=== PATIENT | male | born 1955 | race Caucasian/White ===

== ENCOUNTER 2017-01-29 08:00 | Inpatient (IN) | payer OTHER ==
[~2017-01-29] VITALS: Ht 180.3 cm; Wt 126.8 kg
--- NOTE | ~2017-01-29 | DS ---
PATIENT'S NAME: ALFONSO HYDE [facility] AGE: 61 Y [address] ROOM: [place] [address] LOCATION: GPCU ADMIT DATE: 02/01/2017 Discharge Summary DISCHARGE DATE: 02/02/2017 FAMILY PHYSICIAN: Physician, Unknown ATTENDING PHYSICIAN: Oseas Saenz PRINCIPAL DISCHARGE DIAGNOSIS: Non-ST elevation myocardial infarction secondary to nondominant right coronary artery occlusion treated with percutaneous transluminal coronary angioplasty. SECONDARY DIAGNOSES: 1. Hypertension with hypertensive urgency on admission. 2. Tobaccoism. 3. Atrial flutter status post failed cardioversion on 02/01/2017 with repeat cardioversion on 02/02/2017 with maintained normal sinus rhythm at the time of my dictation. 4. He has a CHADS2-Vasc score of 1. 5. Alcoholism. 6. Moderate obesity. 7. Moderate left ventricular hypertrophy. 8. Mild biatrial dilatation. CONSULTATION: Cardiology on 01/29/[address] Sykla Hudson. BRIEF HISTORY: Mr. Hyde is a 61-year-old male who woke up on the morning of admission with central chest pain, upper part of the chest radiating to his back and shoulders associated with shortness of breath. It was severe and he went to the emergency room. He reports that he has been having the pain for 7 to 10 days, but had ignored it. The pain was lasting between 4 to 5 hours. By the time, he arrived at the emergency room, he was completely pain free. His troponins were elevated. His EKG was negative for ST elevation. He did have history of prior [place] in the past, but has had no significant workup for it. The patient was admitted to the hospitalist service and discharged on heparin and nitroglycerin drips. He was tachycardic and was started on metoprolol. The patient did go to cardiac catheterization on 01/29/2017 and he was then started on Plavix 75 mg a day, aspirin, atorvastatin 80 mg a day. The patient was given adenosine for SVT, rates in the 230s on the 01/30/2017 and started on Cardizem drip at that time. He was found to be in a flutter with RVR. On 01/31/2017, he went for CALLIE cardioversion and was briefly in sinus rhythm with PACs and PVCs. He was given digoxin on 01/31/2017. Metoprolol started and amiodarone p.o. b.i.d. on the 01/31/2017. Yesterday on 02/01/2017, he was again given amiodarone bolus for tachycardia and doses of metoprolol were PATIENT'S NAME: ALFONSO HYDE [facility] AGE: 61 Y [address] ROOM: [address] [address] LOCATION: GPCU ADMIT DATE: 02/01/2017 Discharge Summary DISCHARGE DATE: 02/02/2017 FAMILY PHYSICIAN: Physician, Unknown ATTENDING PHYSICIAN: Oseas Saenz increased. He was resumed on heparin protocol and this morning his heparin protocol was discontinued. His heart rate was down. It was thought that he would be able to go home, however, his heart rate went back up and as above he had to be cardioverted again today by Dr. Hudson. He is now stable with heart rates in the 80s. Dr. Hudson agrees with discharge plan to home today and would follow up him in the near future. INSTRUCTIONS AT DISCHARGE: 1. Diet: Low fat. 2. Activity: As tolerated. 3. Followup: He is encouraged to establish care with PCP within the next week. 4. He is to see Dr. Hudson within 7 days and prior to that, should have a digoxin level with a basic metabolic panel. MEDICATIONS AT THE TIME OF DISCHARGE: 1. Amiodarone 200 mg p.o. t.i.d. 2. Aspirin 325 mg p.o. daily. 3. Lipitor 80 mg p.o. at bedtime daily. 4. Plavix 75 mg p.o. daily. 5. Pepcid 40 mg p.o. daily. 6. Lisinopril 20 mg p.o. daily. 7. Metoprolol 50 mg p.o. b.i.d. 8. NicoDerm patch 21 transdermal apply daily. 9. Spironolactone 25 mg p.o. daily. 10. He can resume his Maalox which he was taking at home prior to admission. 11. Digoxin 0.0625 mg p.o. one daily. CONDITION AT DISCHARGE: Good. The patient agreed with the plan for discharge. Greater than 30 minutes spent in the discharge process and evaluating the patient earlier prior to his cardioversion today. LAMONT QURESHI MD LM/mukul /[id number] d: 02/03/179 t: 02/05/17 1849, DISCHARGE SUMMARY
--- NOTE | ~2017-01-29 | OR ---
PATIENT'S NAME: ALFONSO PENA [facility] AGE: 61 Y [address] ROOM: [address] [address] [facility] ADMIT DATE: 02/01/2017 OR/Procedure Report DISCHARGE DATE: FAMILY PHYSICIAN: PHYSICIAN, UNKNOWN ATTENDING PHYSICIAN: MANI ENAMORADO SURGEON: Shana Anderson MD MUNICIPAL ENGINEER: DATE OF PROCEDURE: 01/31/2017 CARDIOVERSION NOTE: INDICATION: Atrial flutter with rapid ventricular rate. PROCEDURE: The procedure was described to the patient and informed consent was obtained. The patient has been having atrial flutter with rapid ventricular rate despite being on metoprolol, digoxin, Cardizem, and amiodarone. Discussed with the patient risks and benefits, and the patient agreed to proceed with CALLIE cardioversion. CALLIE was performed, which did not show any obvious left atrial appendage thrombus. The CALLIE report is reported separately. Anesthesia was provided by telemarketing agent. The patient was given DC shock 100 joules in anterior-posterior defibrillator pad position and he converted to sinus rhythm. However, in few minutes, he converted back to atrial flutter. Under anesthesia, he was given another shock of 100 joules following which he converted back into sinus rhythm; however, the patient again converted back to atrial flutter, and the patient was given the third DC shock of 100 joules. The patient converted back to sinus rhythm; however, in few minutes, again he converted back to atrial flutter. We will continue amiodarone for 24 hours and reconsider cardioversion tomorrow since the patient is not able to maintain sinus rhythm with cardioversion. SHANA ANDERSON MD LY/modl /[id number] d: 01/31/17905 t: 02/11/17 1217, OPERATIVE SUMMARY
--- NOTE | ~2017-01-29 | CATH ---
Cardiac Diagnostic + PCI Report Demographics Patient Name BECKY Aparicio Gender Male Date of 1955 Age 61 year(s) Patient Number [id number] Date of Study 01/29/2017 Visit Number [id number] Room Number G6301 [place] [id number] Ht 180.34 cm Wt 129.01 kg Referring Becca Primary Physician Physician Skyla BARKLEY Performing Becca Secondary Physician Physician Skyla BARKLEY Diagnostic Becca Assisting Physician Physician Skyla BARKLEY Interventional Becca Physician Insurance Counsel Physician Skyla BARKLEY Findings and Conclusions Diagnostic Findings and Conclusion LVEDP 20 No gradient Calcification involving proximal coronaries. Diagnostic Recommendations PCI of RCA Interventional Findings and Conclusion Initially thought RCA was bigger than it is. Intervention performed. After PTCA, it was clear that RCA is non-dominant. Ballooned the RCA, but did not stent. Vessel is about 2 mm in diameter. Interventional Recommendations Dual antiplatelet therapy for 3 months. Aggressive secondary prevention measures. Procedure Description The patient was brought to the diagnostic cardiac catheterization-EP laboratory in the fasting, non-sedated state. Informed consent was obtained in the written and verbal form after the risks and benefits were explained. The patient had no further questions and agreed to proceed. The planned puncture-incision site(s) were shaved and prepped with ChloraPrep and draped in the usual sterile manner. Conscious sedation, supplemental oxygen, and pain control medications were delivered by a registered nurse under physician guidance. Surface ECG rhythm, blood pressure measurement, and pulse oximetry were monitored throughout the procedure. Arterial access. The access site was infiltrated with lidocaine. The vessel was entered with the Seldinger technique. A sheath was advanced into the vessel and used for catheter placement. Selective left coronary angiography. A catheter was advanced into the left coronary vessel ostium under Fluoroscopic guidance. Contrast was injected by hand. Images were obtained in multiple projections. Selective right coronary angiography. A catheter was advanced into the right coronary vessel ostium under fluoroscopic guidance. Contrast was injected by hand. Images were obtained in multiple projections. Left heart catheterization. A catheter was advanced across the aortic valve to the left ventricle under fluoroscopic guidance. Resting hemodynamics were obtained. Angioplasty: A guiding catheter was used to intubate the vessel. A 0.14 wire was used to cross the lesion. A balloon was positioned across the lesion and inflated. Post placement angiograms were performed. Arterial artery hemostasis was achieved. The patient was transferred to a regular nursing floor via cart accompanied by a nurse. The patient left the laboratory in stable condition. Diagnostic Cath Status: Urgent Procedure Procedure Type Diagnostic procedure:Angiography:, Coronary Angios /[facility] PCI procedure:PTCA:, RCA Indications: NSTEMI. The procedure was explained in detail to the patient. Risks, complications and alternative treatments were reviewed. Written consent was obtained. Medications Reviewed with Patient prior to Procedure. Angiographic Findings Dominance: Left Cardiac Arteries and Lesion Findings LMCA: Lesion on LMCA: Distal subsection.20% stenosis . LAD: Moderate diffuse disease. Lesion on Prox LAD: 40% stenosis . Comments:Type III long 30-40% lesion Lesion on Mid LAD: 30% stenosis . LCx: Dominant LCx, moderate diffuse disease. RCA: Non-dominant Lesion on Prox RCA: Proximal subsection.100% stenosis reduced to 0%. Pre procedure TUCKER 0 flow was noted. Post Procedure TUCKER III flow was present. The guidewire cross was successful.The lesion was diagnosed as a moderate risk lesion.Culprit lesion. Treatment results:Interventional treatment was successful. Devices used - Luge Wire .014 x 182. Number of passes: 1. - Fielder XT 190 cm. Number of passes: 1. - Emerge Balloon 2.0 x 15. 3 inflation(s) to a max pressure of: 6 sarika. - Emerge Balloon 2.5 x 20. 2 inflation(s) to a max pressure of: 14 sarika. - Soaking Tank Worker 200 .014 x 300. Number of passes: 1. Coronary Tree Procedure Data Procedure Date Date: 01/29/2017Start: 03:48 PMEnd: 05:24 PM Entry Locations - Percutaneous access was performed through the Right Femoral artery (Primary location). A 7 Fr sheath was inserted. Hemostasis was successfully obtained using Perclose ProGlide (Wu). Closure Comments: Deployed by Delvin.. Procedure Medications Order and Administration + + + + + !Time !Medication !Dosage !Route ! + + + + + !01/29/2017 03:45 PM !Versed !0.5 mg !I.V. ! + + + + + !01/29/2017 04:02 PM !Heparin (ACC_3) !9000 units !I.V. ! + + + + + !01/29/2017 04:06 PM !Aggrastat (Tirofiban) !3.325 mg !I.V. bolus ! + + + + + !01/29/2017 04:08 PM !Aggrastat (Tirofiban) !0.15 mcg/kg/min !I.V. bolus ! + + + + + !01/29/2017 04:32 PM !Fentanyl !50 mcg !I.V. ! + + + + + !01/29/2017 04:59 PM !Fentanyl !50 mcg !I.V. ! + + + + + !01/29/2017 05:12 PM !Heparin (ACC_3) ! !I.V. ! + + + + + !01/29/2017 05:12 PM !0.9% NaCl !20 ml/hr !I.V. drip ! + + + + + !01/29/2017 05:13 PM !Plavix (ACC_8) !600 mg !P.O. ! + + + + + Devices Used - A6 Fr. BS JR 4 Diag. Catheterwas used for:Right coronary angiography. - A6 Fr. BS JL 4 Diag. Catheterwas used for:Left coronary angiography. - A6 Fr. BS JL 4.5 Diag Catheterwas used for:Left coronary angiography. - A6 Fr. JR4 SH Guide Catheterwas used for:RCA Intervention. Contrast Material - Isovue [id number] ml Fluoroscopy Time: Diagnostic: 25:42 minutes. Total: 25:42 minutes. Fluoroscopy Dose: Diagnostic: 4121 mGy. Total: 4121 mGy. Estimated Blood Loss: 20 ml. Medical History Performed Procedures and Imaging Results - No ACC stress or imaging studies were performed. Allergies - No known allergies. Risk Factors The patient risk factors include:hypertension, family history of premature CAD, last creatinine: 0.8 mg/dl, creatinine clearance: 181.42 ml/min, dyslipidemia, Current/Recent(w/in 1 year) tobacco use and prior [place] . Admission Data Admission Date: 02/01/2017 Admission Time: 08:00 AM Admit Source: Transfer [facility] facility Insurance Payors: None. Admission Medications + +------+-----+---------+---------+ + + !Medication !Dosage!Times!Last !Last !Administered !Comments ! ! ! !Per !Delivery !Delivery ! ! ! ! ! !Day !Date !Time ! ! ! + +------+-----+---------+---------+ + + !Aspirin (any) ! ! ! ! !Yes ! ! + +------+-----+---------+---------+ + + !Beta Marcus ! ! ! ! !Yes ! ! !(any) ! ! ! ! ! ! ! + +------+-----+---------+---------+ + + !Statin (any) ! ! ! ! !Yes ! ! + +------+-----+---------+---------+ + + !Statin (any) ! ! ! ! !Yes ! ! + +------+-----+---------+---------+ + + !Unfractionated ! ! ! ! !Yes ! ! !Heparin (any) ! ! ! ! ! ! ! + +------+-----+---------+---------+ + + Clinical Evaluation Leading to Procedure - The patient's CAD presentation was assessed as: Non-STEMI. - The patient's anginal syndrome during the past two weeks was assessed as: Class IV according to the [employer] Cardiovascular Society Classification System (CCS). Anti-anginal medications were prescribed during the past two weeks. The medication is: Beta Blockers. Hemodynamics Condition: Rest O2 Consumption: Estimated: 318.31Heart Rate: 102 bpm Pressures (mmHg) +-----+ + !Site !Pressure ! +-----+ + !LV !55/14 ,10 ! +-----+ + !LV !58/14 ,10 ! +-----+ + !AO !123/63 (86) ! +-----+ + Shunts Oxygen Values O2 Capacity 220.32 O2 Consumption 318.31 Signatures dtt: Skyla Hudson dtmayco: 01/29/17 1548 Physician Self Edit
--- NOTE | ~2017-01-29 | ECHO ---
Transthoracic Echocardiography Report (TTE) Demographics Patient Name ALFONSO PENA Date of Study 01/29/2017 Patient Number [id number] Visit Number [id number] Date of 1955 Room Number G6301 Accession Number [id number] Gender Male Age 61 year(s) Referring Coat Ironer Hand Daniele FRANCOIST, Physician ESDRAS Physician Interpreting Becca Crum Concrete Mixer Loader Truck Mounted Physician MD Supervising Ordering Physician Valeriano Farooq MD/MLP Nurse Stress Oxyacetylene Welder Conclusions Contractility Score Summary Normal Left Ventricular contractility was noted. Summary Technically difficult exam. Definity used to better delineate endocardial borders. The estimated left ventricular ejection fraction is 55-60% with normal WM.The left ventricle is mildly dilated .Mild concentric left ventricular hypertrophy. Mildly dilated right ventricle with normal right ventricular function. The left atrium is mildly dilated. The right atrium is mildly dilated. Mild tricuspid regurgitation by color Doppler. There is mild pulmonary hypertension. The pulmonary pressure (RVSP) is 38 mmHg. The ascending aorta appears mildly dilated. The maximum diameter measures 3.7 cm. Procedure Type of Study TTE procedure:2D Echocardiogram, Echo with Contrast. Procedure Date Date: 01/29/2017 Start: 08:52 AM Study Location: Inpatient Portable Technical Quality: Fair due to body habitus. Indications:Chest pain. Appropriate Use Criteria: 8 Patient Status: Routine Contrast Medium: Definity. Amount - 4 ml Rhythm: NSR HR: 92 bpm BP: 157/92 mmHg Allergies - No known allergies. M-Mode/2D Measurements LV Diastolic Dimension: 5.98 cm LV Systolic Dimension: 5 cm LV Septum Diastolic: 1.2 cm LV PW Diastolic: 0.94 cm AO Root Dimension: 3.1 cm Cardiac Output: 7.55 l/min AV Cusp Separation: 2.3 cm RV Diastolic Dimension: 3.37 cm LA volume: 93 ml LVOT: 2.2 cm RV Base: 4.72 cm LVOT VTI: 21.6 cm RV Mid: 2.49 cm LV Stroke volume: 82.07 ml TAPSE: 2.93 cm TDI-S': 10.3 cm/s Doppler Measurements AV Peak Velocity: 1.82 m/s MV Peak E-Wave: 0.82 m/s AV Peak Gradient: 13.25 mmHg MV Peak A-Wave: 0.71 m/s AV Mean Gradient: 7 mmHg MV E/A Ratio: 1.16 LVOT Peak Velocity: 1.17 m/s MV P1/2t: 27 msec TR Gradient:33.18 mmHg PV Peak Velocity: 1.03 m/s Estimated RAP:5 mmHg PV Peak Gradient: 4.24 mmHg Estimated RVSP: 38 mmHg Estimated PASP: 38.18 mmHg E' Septal Velocity: 0.07 m/s A' Septal Velocity: 0.13 m/s E' Lateral Velocity: 0.09 m/s A' Lateral Velocity: 0.11 m/s Findings Left Ventricle The left ventricle is mildly dilated . Mild concentric left ventricular hypertrophy with normal EF and WM. Right Ventricle Mildly dilated right ventricle with normal right ventricular function. Left Atrium The left atrium is mildly dilated. There is no evidence of patent foramen ovale or atrial septal defect by color Doppler. Right Atrium The right atrium is mildly dilated. Increased RA pressures Mitral Valve Normal mitral valve structure and function. Aortic Valve The aortic valve is mildly sclerotic. Tricuspid Valve Mild tricuspid regurgitation by color Doppler. There is mild pulmonary hypertension. The pulmonary pressure (RVSP) is 38 mmHg. Pulmonic Valve Normal pulmonic valve structure and function. Pericardial Effusion No evidence of pericardial effusion. Miscellaneous The ascending aorta appears mildly dilated. The maximum diameter measures 3.7 cm. Pleural Effusion No evidence of pleural effusion. Contractility Score LV regional wall motion:(0-Non visualized 1-Normal 2-Hypokinesis 3-Akinesis 4-Dyskinesis 5-Aneurysm) Signature dtt: Skyla Hudson dtd: 01/29/17 0852 Physician Self Edit
--- NOTE | ~2017-01-29 | HP ---
PATIENT'S NAME: ALFONSO PENA [facility] AGE: 61 Y [address] ROOM: [place] [address] LOCATION: GPCU ADMIT DATE: 01/29/2017 History & Physical DISCHARGE DATE: FAMILY PHYSICIAN: PHYSICIAN, UNKNOWN ATTENDING PHYSICIAN: MANI ENAMORADO DATE OF SERVICE: CHIEF COMPLAINT: NSTEMI, chest pain. HISTORY OF PRESENT ILLNESS: This is a 61-year-old male with a long history of smoking and prior history of heart attacks several years ago, presents to the emergency room initially with complaints of chest pain. The patient reports that he woke up, to go use the bathroom at around 3 o'clock in the morning, today, and at that time described chest pain and tightness on the left side that never relieve or would go away. The patient reported some radiation of the pain to the back and left arm as well. The patient, otherwise, denies any shortness of breath, dizziness, lightheadedness, diaphoresis associated to this. The patient reports that he was in his normal state of health, going into bed last week. He does not exactly describe worsening of his pain with exertion and relief with rest or nitroglycerin. The patient, otherwise, also denies any nausea, vomiting, diarrhea, or constipation. Denies any fever or chills. Any recent travel or sick contacts. PAST MEDICAL HISTORY: 1. Hypertension, not on medication. 2. Tobacco dependence. 3. History of heart attack several years ago. FAMILY HISTORY: The patient has a family history of heart disease in both his parent's side including his mother and mother's grandparents. SOCIAL HISTORY: The patient smokes about a pack a day and has been doing so for the past 40+ years. No excessive alcohol or any drug use reported. REVIEW OF SYSTEMS: All systems have been reviewed and were all negative except as described in the HPI. PHYSICAL EXAMINATION: VITAL SIGNS: Blood pressure 181/86, heart rate 98, respiratory rate 20, PATIENT'S NAME: AFLONSO PENA [facility] AGE: 61 Y [address] ROOM: [place] [address] LOCATION: GPCU ADMIT DATE: 01/29/2017 History & Physical DISCHARGE DATE: FAMILY PHYSICIAN: PHYSICIAN, UNKNOWN ATTENDING PHYSICIAN: MANI ENAMORADO saturating 95% on 2 L oxygen. GENERAL: The patient is obese appearing but awake, alert, and oriented x3 in no acute distress. HEENT: Moist mucous membranes. Nose clear. Conjunctival pallor noted. CHEST: Diminished breath sounds but clear to auscultation bilaterally. HEART: S1 and S2. Regular rate and rhythm. Tachycardic. ABDOMEN: Soft, nontender, nondistended with positive bowel sounds. EXTREMITIES: Trace lower extremity edema. MUSCULOSKELETAL: No joint tenderness, effusion, or erythema noted. SKIN: Without rash or lesions. NEUROLOGIC: Grossly nonfocal. LABORATORY DATA: Significant labs, troponin 2.3. EKG, normal sinus rhythm. No definitive ST-T wave changes. ASSESSMENT AND PLAN: 1. Rhk-NB-opyntse elevation myocardial infarction. The patient is with chest pain and troponin elevations. Plan is for cardiac cath later today. In the meantime, the patient is on heparin drip and nitroglycerin drip titrated for chest pain. 2D echo done, pending the read. The patient is a bit tachycardic as well. We will start him on metoprolol 25 mg b.i.d. to reduce some demand. 2. Hypertensive urgency. We will use nitroglycerin drip to lower blood pressure and we will place the patient on blood pressure lowering medicines once acute coronary syndrome is dealt with. In the meantime, continue the use of metoprolol and nitroglycerin drip. 3. Tobacco dependence. The patient with a long history of smoking and I have a had a long discussion with him on how important it is going forward to work on quitting smoking. 4. Morbid obesity. The patient also would require some lifestyle modifications going forward. We will get a fasting lipid panel as well. 5. Deep vein thrombosis prophylaxis, on heparin drip. MD DINO HAYES/mukul /[id number] D: [id number] T: HISTORY & PHYSICAL
--- NOTE | ~2017-01-29 | ECHO ---
Transesophageal Echocardiography Report (CALLIE) Demographics Patient Name ALFONSO PENA Date of Study 01/31/2017 Patient Number [id number] Visit Number [id number] Date of 1955 Room Number G6301 Gender Male Number Age 61 year(s) Referring Minor Front Office Manager Physician Shana Physician Interpreting Minor Saldana Portal Developer Physician Supervising Ordering MD/MLP Physician Nurse Stress Client Services Director Conclusions Summary Transesophageal echocardiogram was done under general anesthesia without difficult probe placement . Technically difficult study. Pt has severe COPD with hypoxia and had lot of secretions in oral cavity requiring frequent suction during the procedure The estimated LV ejection fraction is 55-60 %. Normal left ventricular systolic function. Right ventricle appears moderately dilated.. Normal right ventricular function. Mildly enlarged left atrium. The right atrium appears moderately dilated. There is no evidence of PFO or ASD by color Doppler. There is no obvious LA or CHAU appendage thrombus. Flow velocity in CHAU was within normal limits Trivial mitral valve regurgitation. The aortic valve is mildly sclerotic. Normal appearing tricuspid valve. Mild tricuspid valve regurgitation. Minimal thoracic aorta atheroma. Procedure Type of Study CALLIE procedure Procedure Date Date: 01/31/2017 Start: 07:43 AM CALLIE Performed By: Lizandro Galarza MD Allergies - No known allergies. Findings Right Ventricle Right ventricle appears moderately dilated.. Right Atrium The right atrium appears moderately dilated. Mitral Valve Normal mitral valve structure and function. Aortic Valve The aortic valve is mildly sclerotic. Tricuspid Valve Normal appearing tricuspid valve. Signature dtt: SHANA ANDERSON dtd: 01/31/17 0743 Physician Self Edit
--- NOTE | ~2017-01-29 | OR ---
PATIENT'S NAME: ALFONSO PENA [facility] AGE: 61 Y [address] ROOM: [place] [address] LOCATION: GPCU ADMIT DATE: 01/29/2017 OR/Procedure Report DISCHARGE DATE: 02/02/2017 FAMILY PHYSICIAN: Physician, Unknown ATTENDING PHYSICIAN: Alejandra Cifuentes SURGEON: Skyla Hudson MD JEWELRY FACER: DATE OF PROCEDURE: 02/02/2017 PROCEDURE PERFORMED: Cardioversion. INDICATION: Atrial flutter with a variable ventricular response. DESCRIPTION OF PROCEDURE: After obtaining informed consent, the patient was kept n.p.o. Recently, he had a CALLIE which revealed no left atrial appendage thrombus. He did in fact have a cardioversion on the . He was brought down to the PACU where under anesthesia, provided by the nurse iron handler, he was cardioverted to a regular sinus rhythm using anteroposterior paddle placement at 250 joules. There were no complications noted. MD DEANDRE CAPONE/alfredol /[id number] d: 02/15/17 1351 t: 03/03/17 1726, OPERATIVE SUMMARY
--- NOTE | ~2017-01-29 | CON ---
PATIENT'S NAME: ALFONSO HYDE [facility] AGE: 61 Y [address] ROOM: [place] [address] LOCATION: GPCU ADMIT DATE: 01/29/2017 Consultation DISCHARGE DATE: FAMILY PHYSICIAN: PHYSICIAN, UNKNOWN ATTENDING PHYSICIAN: MNAI ENAMORADO DATE OF CONSULTATION: 01/29/2017 HISTORY OF PRESENT ILLNESS: Mr. Hyde is a 61-year-old male patient who woke up this morning and shortly after that developed central chest pain, mostly located in the upper part of the chest radiating through to the back and shoulder associated with shortness of breath. This was fairly severe and so he went to the emergency room. He has been having these pains for the past 7 to 10 days or so, but not been paying much attention to it. His pain lasted somewhere between 4 to 5 hours and by the time he got here, he was completely pain-free. He has been in functional class 2 with no paroxysmal nocturnal dyspnea or orthopnea. Sleep apnea has never been checked in his case. He denies lightheadedness, dizziness, syncope, presyncope, palpitations, or ankle swelling. His troponins are elevated. His EKG is negative for ST changes. The patient has history of hypertension and he is a current smoker. He denies diabetes or elevated cholesterol. There is no family history of premature coronary artery disease. His Dr. Leyva in [place] have told him that he has had heart attacks in the past, but he has not had any further workup after that. He has no history of rheumatic fever, but has history of heart murmur. There is no history of heart failure or atrial fibrillation. MEDICATIONS: His medications are headache tablet and Tums. ALLERGIES: NO KNOWN DRUG ALLERGIES. PAST MEDICAL HISTORY: 1. Tonsillectomy and adenoidectomy. 2. Fracture, left ankle. SOCIAL HISTORY: The patient is . He drinks 6 packs of alcohol per day. His appetite and weight are stable. Sleep is fair. He delivers newspapers. PATIENT'S NAME: ALFONSO HYDE [facility] AGE: 61 Y [address] ROOM: [place] [address] LOCATION: GPCU ADMIT DATE: 01/29/2017 Consultation DISCHARGE DATE: FAMILY PHYSICIAN: PHYSICIAN, UNKNOWN ATTENDING PHYSICIAN: MANI ENAMORADO FAMILY HISTORY: No premature coronary artery disease. REVIEW OF SYSTEMS: A 12-point review of systems reveal corrective lenses and dry cough. PHYSICAL EXAMINATION: VITAL SIGNS: His blood pressure is 130/80, heart rate is in the 70s and regular, respirations 18, and afebrile. HEENT: Normal. NECK: Supple. No JVD, thyromegaly, lymphadenopathy, or carotid bruit. HEART: PMI is not well located. First and second heart sounds are regular. There are no added sounds or murmurs. CHEST: Revealed diffuse scattered wheezing. ABDOMEN: Soft. EXTREMITIES: Reveal no edema. CENTRAL NERVOUS SYSTEM: Intact. ASSESSMENT: A 61-year-old male patient with a enm-EM-wawdcuw elevation myocardial infarction. He has history of hypertension and tobacco abuse, for which he is not taking any medications. He also abuses alcohol and tobacco as mentioned earlier. RECOMMENDATIONS: To proceed with cardiac catheterization as the next step and further management will depend on his anatomy. Again, I appreciate this opportunity to participate in the care of Mr. Hyde. MD DEANDRE CAPONE/mkuul /[id number] d: 01/29/17 1855 t: 02/03/17 1209, CONSULTATION REPORT
[2017-01-29] MEDS ORDERED: MAALOX LIQ UNIT30 ML PO (09:05)
[2017-01-29] MEDS ORDERED: [UNRECOGNIZED DRUG - OTHER] PO (09:06)
[2017-01-29 09:21] LABS: BASOPHIL # 0.1 K/uL (0.0-0.2); BASOPHIL % 0.5 %; EOSINOPHIL # 0.1 K/uL (0.0-0.5); EOSINOPHIL % 0.5 %; HEMATOCRIT 48.1 % (37.0-53.0); HEMOGLOBIN 16.2 g/dL (12.0-17.0); IMMATURE GRANULOCYTE # 0.1 K/uL (0.0-0.3); IMMATURE GRANULOCYTE % 0.4 %; LYMPHOCYTE # 1.4 K/uL (0.8-4.0); LYMPHOCYTE % 10.8 %; MCH 32.1 pg (27.0-34.0); MCHC 33.7 gm/dL (32.0-36.5); MCV 95.4 fl (83.0-98.0); MONOCYTE # 0.9 K/uL (0.0-1.0); MONOCYTE % 7.3 %; MPV 11.1 fl (9.4-12.4); NEUTROPHIL # (ANC) 10.1 K/uL (1.4-9.0); NEUTROPHIL % 80.5 %; NRBC % 0 /100WBC (0-0.00); PLATELET COUNT 265 K/uL (150-450); RBC 5.04 M/uL (4.00-6.00); RDW-CV 13.8 % (11.9-14.6); WBC 12.6 K/uL (4.0-11.0)
[2017-01-29 09:29] LABS: INR - (THERAPEUTIC) 1.07 (0.92-1.07); PROTIME 11.2 SECONDS (9.8-11.4)
[2017-01-29 09:43] LABS: ALBUMIN 3.1 gm/dL (3.5-5.0); ALK PHOS 68 IU/L (33-138); ALT 46 IU/L (12-78); ANION GAP 9.5 (10.0-19.0); AST 31 IU/L (10-40); BLOOD UREA NITROGEN 15 mg/dL (6-24); CALCIUM 8.3 mg/dL (8.5-10.5); CHLORIDE 104 mMol/L (96-110); CO2 29 mMol/L (22-32); CREATININE 0.8 mg/dL (0.6-1.3); MAGNESIUM 2.5 mg/dL (1.8-2.6); POTASSIUM 4.5 mMol/L (3.7-5.1); SODIUM 138 mMol/L (135-145); TOTAL BILIRUBIN 0.9 mg/dL (0.0-1.5); TOTAL PROTEIN 6.8 g/dL (6.0-8.4)
--- NOTE | 2017-01-29 09:46 | NUR ---
Pt is 61 y/o male admit for chest pain/non-stemi for . No allergies. Came from [facility] via ambulance. Hx AK x2,htn, ?hypercholest and COPD,hacky cough,SOB,marijuana daily,has 6-12 alcoholic drinks 5 days a week. Pt does not have a regular family doctor. Smokes 1 and 1/2 PPD. Resides at home with his significant other.
[2017-01-29 14:43] LABS: INR - (THERAPEUTIC) 1.11 (0.92-1.07); PROTIME 11.7 SECONDS (9.8-11.4)
--- NOTE | 2017-01-29 18:58 | NUR ---
A&Ox3. C/O chest pain 07/31. R) groin cardiac cath this shift. Returned to floor 1714. Balloon to RCA, no stents placed. Bed rest until 2114. L) wrist IV running Nitro at 25mcg/min, NS at 50ml/hr, and Aggrostat 0.15mcg/kg/min for 6hrs.
--- NOTE | 2017-01-29 23:03 | NUR ---
Spot checked patients groin for primary RN. Noticed site was oozing. asked primary rn if site was previously oozing she stated no. manual pressure was held for 5 min. will con't to monitor
[2017-01-30 03:51] LABS: ALBUMIN 2.7 gm/dL (3.5-5.0); ALK PHOS 58 IU/L (33-138); ALT 32 IU/L (12-78); ANION GAP 10.4 (10.0-19.0); AST 19 IU/L (10-40); BLOOD UREA NITROGEN 10 mg/dL (6-24); CHLORIDE 106 mMol/L (96-110); CO2 28 mMol/L (22-32); CREATININE 0.8 mg/dL (0.6-1.3); POTASSIUM 4.4 mMol/L (3.7-5.1); SODIUM 140 mMol/L (135-145); TOTAL PROTEIN 6.3 g/dL (6.0-8.4)
[2017-01-30 04:06] LABS: MAGNESIUM 2.6 mg/dL (1.8-2.6)
--- NOTE | 2017-01-30 05:00 | NUR ---
Significant Event: Pt A&Ox3. VS stable, currently on 3L nc (home RA). Pt had cath yesterday with RCA balloon, but no stent placed. PIV in LW, finishing up the 12 hour fluids at 0530. R) groin site remains soft; however, bloody drainage is noted on gauze and tegaderm. Pt sat at edge of bed, but currently has not ambulated. Pain is minimal. Follow up: Continue plan of care.
--- NOTE | 2017-01-30 16:09 | NUR ---
A&O. SBA PACING IN ROOM MOST OF DAY, HR 120'S-140'S. SBP 160'S-200'S. AFEBRILE, RA. WAITING FOR ECHO. LS CLEAR. BS ACTIVE. CSM WNL. NO C/O PAIN. R GROIN SHADOW/INTACT. L WRIST SL.
--- NOTE | 2017-01-30 18:46 | NUR ---
AT 1740 TELE CALLED WITH HR OF 180 ON PT, WHEN I ENTERED ROOM PT HR WAS 230'S-240'S PT WAS DIAPHORETIC OTHERWISE ASYMPTOMATIC, PT STATED HE JUST GOT DONE EATING AND "THIS HAPPENS SOMETIMES WHEN I EAT" WE TRIED SEVERAL VAGAL MANOUVERS AND HR CAME DOWN TO 170'S BREIFLY. 6 MG OF ADNOSINE WAS GIVEN AT 1801 WITH NO RESULTS. AT 1807 12 MG OF ADNOSINE WAS GIVEN AND HR CAME DOWN TO 120'S-130'S AND IS MAINTAINED. CARDIZEM BOLUS OF 10MG AND CARDIZEM GTT PER PROTOCOL WAS THEN STARTED.
[2017-01-30 18:56] LABS: ALBUMIN 2.9 gm/dL (3.5-5.0); BLOOD UREA NITROGEN 11 mg/dL (6-24); CALCIUM 8.3 mg/dL (8.5-10.5); CHLORIDE 106 mMol/L (96-110); CO2 28 mMol/L (22-32); CPK 153 IU/L (35-332); CREATININE 0.9 mg/dL (0.6-1.3); MAGNESIUM 2.4 mg/dL (1.8-2.6); PHOSPHORUS 2.4 mg/dL (2.5-4.9); SODIUM 140 mMol/L (135-145)
--- NOTE | 2017-01-31 05:13 | NUR ---
Significant Event: Pt A&Ox3. HR's have maintained in the 130's. Started throwing multiple PVC's around 0140. Around 0350, started having bigeminy and trigeminy couplets then after a trigeminy couplet will have a 4 beat run of Vtach. Multiple small runs of Vtach. Pt remained asymptomatic throughout shift. Called Yerra and gave 1 time dose of 250mcg dig. Cardizem running at 15 mg/hr. EKG ordered this AM. Pt currently NPO. Follow up: Monitor closely. EKG in AM.
[2017-01-31 05:25] LABS: BASOPHIL # 0.1 K/uL (0.0-0.2); BASOPHIL % 0.5 %; EOSINOPHIL # 0.3 K/uL (0.0-0.5); EOSINOPHIL % 2.3 %; HEMATOCRIT 47.4 % (37.0-53.0); HEMOGLOBIN 15.4 g/dL (12.0-17.0); IMMATURE GRANULOCYTE % 0.3 %; LYMPHOCYTE # 2.2 K/uL (0.8-4.0); LYMPHOCYTE % 19.5 %; MCH 31.2 pg (27.0-34.0); MCHC 32.5 gm/dL (32.0-36.5); MCV 96.1 fl (83.0-98.0); MONOCYTE # 0.8 K/uL (0.0-1.0); MONOCYTE % 7.2 %; MPV 10.7 fl (9.4-12.4); NEUTROPHIL # (ANC) 7.8 K/uL (1.4-9.0); NEUTROPHIL % 70.2 %; NRBC % 0 /100WBC (0-0.00); PLATELET COUNT 282 K/uL (150-450); RBC 4.93 M/uL (4.00-6.00); RDW-CV 13.8 % (11.9-14.6); WBC 11.1 K/uL (4.0-11.0)
[2017-01-31 05:39] LABS: ALBUMIN 2.8 gm/dL (3.5-5.0); BLOOD UREA NITROGEN 10 mg/dL (6-24); CALCIUM 8.4 mg/dL (8.5-10.5); CHLORIDE 107 mMol/L (96-110); CO2 26 mMol/L (22-32); CREATININE 0.7 mg/dL (0.6-1.3); PHOSPHORUS 2.5 mg/dL (2.5-4.9); SODIUM 140 mMol/L (135-145)
--- NOTE | 2017-01-31 15:43 | NUR ---
A&O. SBA. SBP 110'S-120'S. HR 120'S-160'S. RA. AFEBRILE. LS CLEAR. DENIES CHEST PAIN OR SOB. DIAPHORETIC MOST OF TIME. HR AND DIAPHORESIS CONSIDERABLY HIGHER WHILE EATING. WENT FOR A CALLIE AND CARDIOVERSION THIS AM SHOCK X3 AND DID NOT SUSTAIN NS, WILL TRY CARDIOVERSION AGAIN TOMORROW AM. L AC INFUSING AMIO @ 0.5 UNTIL 0630 ON 02/01. R WRIST IV SL. FAMILY AT BEDSIDE.
--- NOTE | 2017-02-01 00:28 | NUR ---
Around 2024, I went into patient's room to do my purposeful rounding. At that time, I noticed patient had a run of Vtach. The longest captured was 6 beats. At 2031, I called Dr. Gaxiola to tell him that patient started having runs of Vtach which is different from during the day. Dr. Gaxiola gave an order to continue the amiodarone drip, start 400mg PO amiodarone tomorrow at 0600, give an additional 25mg dose of PO metoprolol, and make patient NPO tomorrow at [address] Jordan can reassess patient in the morning. At 2337, I went in again to patient's room to do my purposeful rounding when patient started having longer beat runs of Vtach, >6. I called RN Althea to come assess my patient so that I could call Dr. Gaxiola as Billing Adjudicator Adriana was with a patient down in MRI. I called Dr. Gaxiola at 2339 explaining that patient was having more frequent runs of Vtach and the runs were longer than previously. Patient also started experiencing indigestion and became diaphoretic. At that time, Dr. Gaxiola said to continue to watch the patient and Dr. Jordan will address in the AM. At 2345, Dr. Gaxiola called back and said to give a bolus of cardizem and start a cardizem drip. I clarified that he would like cardizem to run with the amiodarone. Dr. Gaxiola said just to continue the amiodarone drip and not start a cardizem drip. Again, I clarified that he didn't want to do anything and did not want to start a cardizem drip on top of the amiodarone that was currently running. At this time, the plan is to continue to monitor the patient and have the heart rhythms and heart rate addressed in the morning.
[2017-02-01 04:51] LABS: BASOPHIL # 0.1 K/uL (0.0-0.2); BASOPHIL % 0.5 %; EOSINOPHIL # 0.3 K/uL (0.0-0.5); EOSINOPHIL % 2.7 %; HEMATOCRIT 44.9 % (37.0-53.0); HEMOGLOBIN 14.9 g/dL (12.0-17.0); IMMATURE GRANULOCYTE % 0.2 %; LYMPHOCYTE # 2.6 K/uL (0.8-4.0); LYMPHOCYTE % 23.3 %; MCH 31.8 pg (27.0-34.0); MCHC 33.2 gm/dL (32.0-36.5); MCV 95.7 fl (83.0-98.0); MONOCYTE # 0.7 K/uL (0.0-1.0); MONOCYTE % 6.3 %; MPV 10.7 fl (9.4-12.4); NEUTROPHIL # (ANC) 7.4 K/uL (1.4-9.0); NRBC % 0 /100WBC (0-0.00); PLATELET COUNT 307 K/uL (150-450); RBC 4.69 M/uL (4.00-6.00); RDW-CV 13.6 % (11.9-14.6)
--- NOTE | 2017-02-01 04:56 | NUR ---
Significant Event: Pt A&Ox3. Around 2021, pt had a run of Vtach, with longest run of 6 beats. Continued to have multiple runs of Vtach, with the longest at [address] Gaxiola when the Vtach runs started, but he said to continue to monitor pt. Pt is NPO currently for Dr. Jordan to address plan this AM. Around 319, pt stopped having couplets and would have sporatic PVC's. Per Dr. Gaxiola, we are to start PO amio 400mg BID. I gave additional dose of metoprolol PO 25mg last night. Pt remained mostly asymptomatic, except did c/o heartburn and was diaphoretic. Pt's heart rate remains elevated. BP's have stayed stable. Remains afebrile. Did have to put pt on 2L O2 last night d/t dipping down into the high 80's while sleeping. Follow up: Remain NPO. Have Dr. Jordan review plan. Continue to monitor.
[2017-02-01 05:15] LABS: ALBUMIN 2.7 gm/dL (3.5-5.0); ALK PHOS 59 IU/L (33-138); ALT 55 IU/L (12-78); AST 28 IU/L (10-40); BLOOD UREA NITROGEN 11 mg/dL (6-24); CALCIUM 8.3 mg/dL (8.5-10.5); CHLORIDE 107 mMol/L (96-110); CO2 27 mMol/L (22-32); CREATININE 0.9 mg/dL (0.6-1.3); MAGNESIUM 2.3 mg/dL (1.8-2.6); SODIUM 140 mMol/L (135-145); TOTAL PROTEIN 6.2 g/dL (6.0-8.4)
[2017-02-01 05:21] LABS: TOTAL BILIRUBIN 0.7 mg/dL (0.0-1.5)
--- NOTE | 2017-02-01 16:52 | NUR ---
Introduced self and role of care management to patient. Patient lives in [place] with his S.O. He hopes to go home tomorrow. He is self pay. He has the financial assistance form to complete. He does not have a PCP. He says he went to Dr. Fernandez before he retired. He says he called that clinic a year ago and they told him he had a bill from 7 years ago and so they won't see him. He says he thought everything there was paid up, so now he has been going to the ER in [place] when sick or hurt. Talked about the bills he owes there now. Gave him [facility] card and encouraged him to contact them about SSI or medicaid. 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 Asked him if he would want a PCP in [place] or [place] and he is not sure. Told him to think about it and we can assist in finding a PCP if he wants us to. He will let me know. Talked about discharge medications and he only thinks he will be on 3 and they either over the counter or $4 at [facility]. Will follow.
--- NOTE | 2017-02-01 17:04 | NUR ---
A&O. SBP 150'S/100'S. HR 120'S-130'S. RA. AFEBRILE. NO C/O PAIN. LESS DIAPHORETIC. RE-STARTED AMIO GTT, REPLACE MG, STARTED MISSED HEPARIN DOSE AT 1000 UNITS/H NEXT PTTHP AT 1930. LS CLEAR. VD PER BR. BM X2 TODAY. CSM WNL. IV TO L AC AND R WRIST. FAMILY AT BEDSIDE. PT GOT UPSET THIS AM D/T NPO STATUS AND WAS GOING TO LEAVE AMA AFTER SPEAKING WITH PT HE WAS BETTER FOR REST OF DAY.
[2017-02-02 02:24] LABS: BLOOD UREA NITROGEN 13 mg/dL (6-24); CALCIUM 8.1 mg/dL (8.5-10.5); CHLORIDE 107 mMol/L (96-110); CO2 25 mMol/L (22-32); CREATININE 0.8 mg/dL (0.6-1.3); MAGNESIUM 2.3 mg/dL (1.8-2.6); SODIUM 139 mMol/L (135-145)
--- NOTE | 2017-02-02 04:21 | NUR ---
Significant Event: A/O, SBP 130/70-160/100s, HR 120s, did lower into 60-90s throughout the night, RA, not symptomatic with fast rates, Ammiodarone gtt continues to L)fa, Heparin gtt at 1400 units/hr to R)fa, voids per urinal, denies pain, L)AC slightly red/edematous from previous infiltration Follow up: continue to monitor rates
--- NOTE | 2017-02-02 11:15 | NUR ---
Spoke with patient and he hopes to go home today. Talked to him about ETOH use and if interested in treatment, either as inpatient or outpatient. He says he went to [facility] a number of years ago and really liked it. Said he stayed an extra couple of weeks and tried to find work in the area, but finally had to return home. He knows when the AA meetings are in [place] and some of them involved with AA, but says he doesn't think he needs it. Asked him if he drinks now and he says only a 6 pack of beer per day. Asked him if he didn't think that was alot and he said no, he knows lots of people that drink more than that. Told him I thought it was alot and would want him to cut back on his drinking. He says he is also suppose to stop smoking. Asked him if he wanted resources for inpatient or outpatient alcohol treatment and he says no. Says he won't go back to inpatient treatment and he knows about AA and when they meet. He again says he only drinks a 6 pack a day and it is really not an issue. Encouraged him to try to cut back and think about getting involved with AA. He denies other discharge needs at this time. Made referral to [facility] to discuss with him is eligible for medicaid or SSI. Will follow.
--- NOTE | 2017-02-02 15:45 | NUR ---
Significant Event: A/O. Hypertensive and rates ranging from 80s-130s this shift. Aflutter, patient remains asymptomatic. Rates crept up this afternoon and patient determined to dismiss to home today. Dr Hudson to attempt another cardioversion and patient states that "I'm leaving tonight no matter what." This morning ambulated in halls and HRs as high as 121 after 2 laps on south side of unit. Follow up: currently down in [facility] for cardioversion
[2017-02-02] MEDS ORDERED: ASPIRIN EC81 MG PO (17:18)
[2017-02-02] MEDS ORDERED: CORDARONE,PACE200 MG PO (17:18)
[2017-02-02] MEDS ORDERED: PLAVIX75 MG PO (17:19)
[2017-02-02] MEDS ORDERED: LIPITOR80 MG PO (17:19)
[2017-02-02] MEDS ORDERED: PRINIVIL (ZESTR20 MG PO (17:20)
[2017-02-02] MEDS ORDERED: PEPCID20 MG PO (17:20)
[2017-02-02] MEDS ORDERED: LOPRESSOR50 MG PO (17:20)
[2017-02-02] MEDS ORDERED: NICODERM / HABIT7 MG TRANS (17:21)
[2017-02-02] MEDS ORDERED: ALDACTONE25 MG PO (17:22)
[2017-02-02] MEDS ORDERED: LANOXIN (DIGI125 MCG PO (17:24)
--- NOTE | 2017-02-02 17:47 | NUR ---
Patient to dismiss this evening once ride has arrived. Patient successfully cardioverted, SR 80s. Denies pain. Denies question or concern of dismissal. IV dc'd. Smoking and alcohol cessation provided as well as new med information. Rx provided to patient.
== END 2017-02-02 18:03 | disposition disaster alternative care site (69) | DRG 251 ==
LOC: EDSTATUS 08:00 → GPCU 08:13
PROVIDERS: Family Medicine; Internal Medicine Interventional Cardiology; ADMIT Internal Medicine
DX: I21.4 Non-ST elevation (NSTEMI) myocardial infarction (principal); I48.92 Unspecified atrial flutter; I10 Essential (primary) hypertension; I47.1 Supraventricular tachycardia; I16.0 Hypertensive urgency; I25.10 Atherosclerotic heart disease of native coronary artery without angina pectoris; I25.84 Coronary atherosclerosis due to calcified coronary lesion; E66.01 Morbid (severe) obesity due to excess calories; Z68.39 Body mass index [BMI] 39.0-39.9, adult; I25.2 Old myocardial infarction; F10.20 Alcohol dependence, uncomplicated; I51.7 Cardiomegaly; F17.200 Nicotine dependence, unspecified, uncomplicated; Z82.49 Family history of ischemic heart disease and other diseases of the circulatory system; J44.9 Chronic obstructive pulmonary disease, unspecified
CPT/HCPCS: C1725; C1760; C1769; C1887; C8929; J0153; J0282; J1160; J1644; J1650; J2250; J2270; J3010; J3246; J3475; J7030; J7040; J7060; Q9957

== ENCOUNTER 2017-02-22 19:44 | Inpatient (IN) | payer SELFPAY ==
[~2017-02-22] VITALS: Ht 180.3 cm; Wt 121.0 kg
--- NOTE | ~2017-02-22 | ECHO ---
Transthoracic Echocardiography Report (TTE) Demographics Patient Name ALFONSO PENA Date of Study 02/23/2017 Patient Number [id number] Visit Number [id number] Date of 1955 Room Number G6322 Gender Male Number Age 61 year(s) Referring Scott [address] Street Cleaner Kirsten Virk RVT Physician A Physician Interpreting Scott Tool Filer Physician Miki Ge MD Supervising Ordering Scott MD/MLP Physician Miki Ge MD Nurse Stress Head Of [place] Conclusions Summary The estimated left ventricular ejection fraction is 50%. Small global pericardial effusion measuring .53 cm. Procedure Type of Study TTE procedure:2D Echocardiogram. Procedure Date Date: 02/23/2017 Start: 08:40 AM Study Location: Inpatient Portable Technical Quality: Adequate visualization Appropriate Use Criteria: 9 Patient Status: Routine Weight: 271 pounds HR: 57 bpm BP: 119/75 mmHg Allergies - No known allergies. Findings Pericardial Effusion Small global pericardial effusion measuring .53 cm. Contractility Score LV regional wall motion:(0-Non visualized 1-Normal 2-Hypokinesis 3-Akinesis 4-Dyskinesis 5-Aneurysm) Signature dtt: Bhavesh Chavez dtd: 02/23/17 0840 Physician Self Edit
--- NOTE | ~2017-02-22 | ECHO ---
Transthoracic Echocardiography Report (TTE) Demographics Patient Name ALFONSO PENA Date of Study 02/24/2017 Patient Number [id number] Visit Number [id number] Date of 1955 Room Number G6322 Gender Male Number Age 61 year(s) Referring Mildred Bangura Invoice Classification Clerk Liza Friedman [facility], Physician Scott Ge MD Physician Interpreting Scott Bobbin Marker Physician Miki Ge MD Supervising Ordering Scott BARKLEY/MLP Physician Miki Ge MD Nurse Stress Rocket Motor Tester Conclusions Summary The estimated left ventricular ejection fraction is 50%. Trivial global pericardial effusion. Epicardial fat pad noted. Procedure Type of Study TTE procedure:Echo Limited w/o Contrast. Procedure Date Date: 02/24/2017 Start: 11:03 AM Study Location: Inpatient Portable Technical Quality: Adequate visualization Indications:Pericardial effusion. Appropriate Use Criteria: 9 Patient Status: Routine Rhythm: Within normal limits HR: 76 bpm BP: 120/72 mmHg Allergies - No known allergies. Findings Pericardial Effusion Trivial global pericardial effusion. Epicardial fat pad noted. Signature dtt: Bhavesh Chavez dtd: 02/24/17 1103 Physician Self Edit
--- NOTE | ~2017-02-22 | HP ---
PATIENT'S NAME: ALFONSO PENA [facility] AGE: 61 Y [address] ROOM: [place] [address] LOCATION: GPCU ADMIT DATE: 02/22/2017 History & Physical DISCHARGE DATE: FAMILY PHYSICIAN: PHYSICIAN, UNKNOWN ATTENDING PHYSICIAN: Linda Chavez DATE OF SERVICE: ADMITTING DIAGNOSIS: Cardiac tamponade. HISTORY OF PRESENT ILLNESS: The patient is a 61-year-old man who presented today in the emergency room in [place] reporting that for about a week he had chest pain, progressive distress, abdominal and neck pain, difficulty breathing, especially if he lies down. He did not have any episodes of syncope. The patient was evaluated in the emergency room. His D-dimer was elevated; so, they proceeded with pulmonary embolus protocol, CT angiogram of his chest, which disclosed no pulmonary embolism, but the presence of uqchiukp-tt-tomix pericardial effusion. Subsequently, I was contacted and I accepted the patient in transfer. PERTINENT MEDICAL HISTORY: He was hospitalized at [facility] from January 29 to February 02 and he underwent percutaneous angioplasty of his right coronary artery. He had a myocardial infarction and subsequently also during the recovery period, he had an episode of atrial flutter with cardioversions twice and then he was placed on amiodarone and remained in sinus rhythm. OUTPATIENT MEDICATIONS: Include: 1. Amiodarone 200 mg 3 times a day. 2. Amlodipine atorvastatin 10/80 once a day. 3. Aspirin 325 daily. 4. Clopidogrel 75 daily. 5. Digoxin 75 mcg daily. 6. Famotidine 40 mg daily. 7. Lisinopril 20 mg daily. 8. Spironolactone 25 mg daily. SOCIAL HISTORY: The patient is and works in [employer] in [place]. Reports smoking a pack and half of cigarettes a day and drinking a 6-pack of beer daily and 3 times that amount over the weekends. He also smokes marijuana, but no other drug use. He is . PATIENT'S NAME: ALFONSO PENA [facility] AGE: 61 Y [address] ROOM: [place] [address] LOCATION: GPCU ADMIT DATE: 02/22/2017 History & Physical DISCHARGE DATE: FAMILY PHYSICIAN: PHYSICIAN, UNKNOWN ATTENDING PHYSICIAN: Linda Chavez REVIEW OF SYSTEMS: Otherwise, negative. PHYSICAL EXAMINATION: GENERAL: The patient was examined in the emergency room. He was anxious and requested to sit up on the gurney. VITAL SIGNS: His heart rate was 96 and blood pressure 146/70. He had linnette pulsus paradoxus on palpating his radial pulse. NECK: Neck veins could not be easily examined. HEART: Regular, distant heart sounds. LUNGS: Clear anteriorly. ABDOMEN: Obese and nontender. EXTREMITIES: Lower extremities trace edema. DIAGNOSTIC DATA: We did a brief echocardiogram at the bedside that showed mqfezuxp-no-nhiup pericardial effusion surrounding the heart with some mild collapse of the right chambers as well as respiratory variation of the tricuspid inflow tracing. IMPRESSION: 1. Cardiac tamponade. 2. Coronary artery disease with recent percutaneous intervention. 3. Chronic obstructive pulmonary disease. 4. Hypertension. 5. Alcoholism. 6. Active smoking. PLAN: We will proceed with percutaneous drainage of his pericardial effusion. Risks, benefits, and alternatives was explained and he is willing to proceed. Thank you for allowing [facility] to assist in the care of your patient. LINDA CHAVEZ MD PE/mukul /[id number] D: 331 T: 801 HISTORY & PHYSICAL
--- NOTE | ~2017-02-22 | CATH ---
Cardiac Diagnostic Report Demographics Patient Name EBCKY Aparicio Gender Male Date of 1955 Age 61 year(s) Patient Number [id number] Date of Study 02/22/2017 Visit Number [id number] Room Number G6322 [place] [id number] Ht 180.34 cm Wt 122.92 kg Referring Raheem Sanders MD Primary Physician Physician Performing Efstratiou Secondary Physician Physician Miki Ge MD Diagnostic Efstratiou Assisting Physician Physician Miki Ge MD Interventional Physician Methods Analyst Data Processing Physician Findings and Conclusions Diagnostic Findings and Conclusion Catheter to drain over the next 24-48hrs Procedure Description Successful evacuation of 520cc of serosanguinous fluid from a standard subxiphoid approach Procedure Procedure Type Diagnostic procedure:Misc:, Periocardiocentesis The procedure was explained in detail to the patient. Risks, complications and alternative treatments were reviewed. Written consent was obtained. Medications Reviewed with Patient prior to Procedure. Procedure Data Procedure Date Date: 02/22/2017Start: 08:07 PMEnd: 08:29 PM Procedure Medications Order and Administration + + + + + !Time !Medication !Dosage !Route ! + + + + + !02/22/2017 08:03 PM !0.9% NaCl !100 ml/hr !I.V. drip ! + + + + + !02/22/2017 08:06 PM !Versed !1 mg !I.V. ! + + + + + !02/22/2017 08:07 PM !Fentanyl !50 mcg !I.V. ! + + + + + !02/22/2017 08:18 PM !0.9% NaCl ! !I.V. drip ! + + + + + Contrast Material - Isovue 3000 ml Fluoroscopy Time: Diagnostic: 1:54 minutes. Total: 1:54 minutes. Fluoroscopy Dose: Diagnostic: 94 mGy. Total: 94 mGy. Estimated Blood Loss: 0 ml. Medical History Allergies - No known allergies. Admission Data Admission Date: 02/22/2017 Admission Time: 07:56 PM Insurance Payors: None. Hemodynamics Condition: Rest Estimated: Heart Rate: 28 bpm Signatures dtt: Bhavesh Chavez dtd: 02/22/172006 Physician Self Edit
--- NOTE | ~2017-02-22 | DS ---
PATIENT'S NAME: ALFONSO PENA [facility] AGE: 61 Y [address] ROOM: [place] [address] LOCATION: GPCU ADMIT DATE: 02/22/2017 Discharge Summary DISCHARGE DATE: 02/25/2017 FAMILY PHYSICIAN: Bear Levy MD ATTENDING PHYSICIAN: Linda Modi DIAGNOSES: 1. Cardiac tamponade. 2. Coronary artery disease with recent percutaneous transluminal angioplasty. 3. Episode of atrial flutter, maintaining sinus rhythm on amiodarone. 4. Chronic obstructive pulmonary disease. 5. Obesity. 6. Active smoking. HOSPITAL COURSE: The patient was transferred from [place] with the diagnosis of a kufptdze-as-drbky pericardial effusion discovered on CT of his chest, which was done to rule out pulmonary embolism. He was in linnette tamponade with pulsus paradoxus, which was confirmed by a brief echocardiogram. He was taken directly to the catheterization laboratory, where 520 mL of serosanguineous fluid were evacuated successfully from a standard subxiphoid approach. The catheter was left for the next 48 hours and drained very little fluid. The studies on the fluid showed only inflammation. DISCHARGE CONDITION/FOLLOWUP: His medications were adjusted, and he was discharged in stable condition to follow up with his regular potato chip fryer, Dr. Hudson. MEDICATIONS AT DISCHARGE: 1. Amiodarone 200 mg twice a day. 2. Amlodipine 10 mg daily. 3. Aspirin 81 mg daily. 4. Atorvastatin 80 mg daily. 5. Clopidogrel 75 mg daily. 6. Famotidine 40 mg daily. 7. Lisinopril 20 mg daily. 8. Metoprolol tartrate 100 mg twice a day. 9. Nicotine 20 mg patch. 10. Spironolactone 25 mg daily. LINDA MODI MD PATIENT'S NAME: ALFONSO PENA [facility] AGE: 61 Y [address] ROOM: [place] [address] LOCATION: GPCU ADMIT DATE: 02/22/2017 Discharge Summary DISCHARGE DATE: 02/25/2017 FAMILY PHYSICIAN: Bear Levy MD ATTENDING PHYSICIAN: Linda Modi /[id number] d: 02/26/17 0120 t: 02/26/17 0905, DISCHARGE SUMMARY
--- NOTE | ~2017-02-22 | ECHO ---
Transthoracic Echocardiography Report (TTE) Demographics Patient Name ALFONSO PENA Date of Study 02/22/2017 Patient Number [id number] Visit Number [id number] Date of 1955 Room Number G6322 Gender Male Number Age 61 year(s) Referring [facility] Technician Daniele Santoyo RVT, Physician Joo BARKLEY RDCS Physician Interpreting Scott [employer] Helper Physician Miki Ge MD Supervising Ordering Scott BARKLEY/MLP Physician Miki Ge MD Nurse Stress Soa Architect Conclusions Summary Pre-pericardiocentesis: There is evidence of cardiac tamponade. RA and RV collpase is present. Dilated IVC with no collapse. Large global pericardial effusion. Post-pericardiocentesis: Small global pericardial effusion remains. At this time, there is no evidence of cardiac tamponade. Procedure Type of Study TTE procedure:2D Echocardiogram. Procedure Date Date: 02/22/2017 Start: 07:38 PM Study Location: Inpatient Portable Technical Quality: Adequate visualization Indications:Cardiac Tamponade. Appropriate Use Criteria: 8 Patient Status: STAT Weight: 271 pounds Rhythm: NSR HR: 99 bpm BP: 120/79 mmHg Allergies - No known allergies. Signature dtt: Bhavesh Chavez dtd: 02/22/17 1938 Physician Self Edit
[~2017-02-22 19:44] MED LIST: ALDACTONE25 MG PO; ASPIRIN EC81 MG PO; CORDARONE,PACE200 MG PO; LANOXIN (DIGI125 MCG PO; LIPITOR80 MG PO; LOPRESSOR50 MG PO; MAALOX LIQ UNIT30 ML PO; NICODERM / HABIT7 MG TRANS; PEPCID20 MG PO; PLAVIX75 MG PO; PRINIVIL (ZESTR20 MG PO; [UNRECOGNIZED DRUG - OTHER] PO
[2017-02-22 21:13] LABS: HEMATOCRIT 2 % (37.0-53.0)
--- NOTE | 2017-02-22 21:35 | NUR ---
Patient is from [facility]. On 01/29 had a heart cath ballooned RCA do to having chest pain and troponin where elevated. Last few days had been feeling unwell and chest pain off and on. Patient went to [facility] ER and was sent here for higher level of care. Dr. Estrada did in echo in ER to find he had a pericardial effusion. He went to hatchery laborer and had 520ml taking off his heart and a drain was placed. On arrival to floor patient is A/O x3. VSS on RA. Currently on bed rest until 7am then up to chair. Lungs ex/in wheezes thoughtout. Bowel sounds present had BM last 02/22. Skin issue has scabs and scars to bilateral legs/arms. IV to LT AC and Rt forearm saline locked. Chest pain 07/31. Drain in sternum to gravity. Echo, EKG, Labs in AM. Smokes marijuana and drink alcohol.
[2017-02-23 03:40] LABS: BASOPHIL % 0.3 %; EOSINOPHIL # 0.1 K/uL (0.0-0.5); EOSINOPHIL % 0.6 %; HEMOGLOBIN 14.8 g/dL (12.0-17.0); IMMATURE GRANULOCYTE # 0.1 K/uL (0.0-0.3); IMMATURE GRANULOCYTE % 0.5 %; LYMPHOCYTE # 2.1 K/uL (0.8-4.0); LYMPHOCYTE % 16.2 %; MCH 31.8 pg (27.0-34.0); MCHC 33.8 gm/dL (32.0-36.5); MCV 94.2 fl (83.0-98.0); MONOCYTE # 1.1 K/uL (0.0-1.0); MONOCYTE % 8.1 %; MPV 10.9 fl (9.4-12.4); NEUTROPHIL # (ANC) 9.6 K/uL (1.4-9.0); NEUTROPHIL % 74.3 %; NRBC % 0 /100WBC (0-0.00); PLATELET COUNT 280 K/uL (150-450); RBC 4.65 M/uL (4.00-6.00); RDW-CV 13.4 % (11.9-14.6); WBC 12.9 K/uL (4.0-11.0)
[2017-02-23 03:42] LABS: HEMATOCRIT 43.8 % (37.0-53.0)
[2017-02-23 03:55] LABS: ALBUMIN 2.7 gm/dL (3.5-5.0); ALK PHOS 79 IU/L (33-138); ALT 46 IU/L (12-78); ANION GAP 12.2 (10.0-19.0); AST 23 IU/L (10-40); BLOOD UREA NITROGEN 9 mg/dL (6-24); CALCIUM 8.2 mg/dL (8.5-10.5); CHLORIDE 99 mMol/L (96-110); CO2 28 mMol/L (22-32); CPK 44 IU/L (35-332); POTASSIUM 4.2 mMol/L (3.7-5.1); SODIUM 135 mMol/L (135-145); TOTAL BILIRUBIN 0.7 mg/dL (0.0-1.5); TOTAL PROTEIN 6.5 g/dL (6.0-8.4)
--- NOTE | 2017-02-23 04:30 | NUR ---
Patient A/Ox3. VSS on RA. Bedrest till 0700. Lungs clear/dim - wheezes. Bowel sounds present. IV's saline locked. 210ml out of Drain. [place] x1 for neck pain, relief noted. Slept well.
--- NOTE | 2017-02-23 12:23 | NUR ---
Introduced self and care management services to patient. Lives in [place] with his girlfriend, works on machines at [employer]. Denies concerns about going home on discharge, denies needs. Will follow.
--- NOTE | 2017-02-23 16:54 | NUR ---
Significant Event:VSS, NSR with HR 75-85, denies CP, SOB with rest or activity. Lungs clear/dim. Denies physical pain. Pericardial drain remains intact to sternum with 90ml of serousangious drainage out. Activity as tolerated, ambulates in room/hallway with SBA 1. EKG/ECHO completed. Follow up:Continue to monitor. Labs in a.m.
--- NOTE | 2017-02-24 04:07 | NUR ---
Shift Summary: PATIENT A&0x3. VSS. SBP LOW WAS 91. STERNAL DRAIN HAD NO OUTPUT. DRESSING WAS C/D/I. PATIENT IS ON ROOM AIR. LUNGS CLEAR AND DIM. HYPOACTIVE BOWEL SOUNDS. VOIDS PER URINAL. DARK YELLOW URINE. PATIENT LEGS COVERED IN BRUISES AND SCABS. SBA. NO COMPLAINTS OF PAIN. Follow Up: POSSIBLE D/C DRAIN TODAY
--- NOTE | 2017-02-24 15:41 | NUR ---
Pt alert, oriented. Has been up and about room onw own. Denies pain. Lungs clear, diminished. Denies SOB. Sternal drain intact with scant sero-sang drchantell in bag. Pt refused bath. Had echo today. Dr Estrada will come back this afternoon and possibly remove sternal drain. Saline lock Rt anterior FA flushes well. Voids in urinal. Enc to drink more fluids. Family here this afternoon.
--- NOTE | 2017-02-24 17:52 | NUR ---
Pt had norco at 1740 for c/o Pain Rt posterior neck area rated at 4
--- NOTE | 2017-02-25 03:21 | NUR ---
A&Ox3. Up ad narciso in room. Has pain at times at posterior neck. Percocet given x1 for pain. Denies now. Lungs clear/dim. Sternal drain remains intact with very little drainage noted in bag. Remains sero-sang. VSS on r/a. No SOB noted. Generalized edema 1+. Possible d/c of drain today. SL to R) anterior FA flushes well and is reinforced with tape. Possible D/C home this afternoon.
--- NOTE | 2017-02-25 16:34 | NUR ---
AAOx3. Cooperative with cares. Up adlib in room. IV s/l'd to RFA. Tolerating cardiac diet well. Pericardial drain pulled this a.m. Covered by bandaid. VSS, afebrile, on RA. Metoprolol increased today. Probable d/c this pm. Should f/u w/Dr Jordan in 2wks per Dr Estrada.
[2017-02-25] MEDS ORDERED: NORVASC10 MG PO (17:40)
== END 2017-02-25 17:00 | disposition disaster alternative care site (69) | DRG 315 ==
LOC: GMED 19:44 → GPCU 19:56
PROVIDERS: ADMIT Internal Medicine Cardiovascular Disease
PROC: 0W9D30Z Drainage of Pericardial Cavity with Drainage Device, Percutaneous Approach (ICD-10-PCS; principal; 2017-02-22)
DX: I31.3 Pericardial effusion (noninflammatory) (principal); I48.92 Unspecified atrial flutter; I31.4 Cardiac tamponade; I10 Essential (primary) hypertension; I25.10 Atherosclerotic heart disease of native coronary artery without angina pectoris; J44.9 Chronic obstructive pulmonary disease, unspecified; F10.20 Alcohol dependence, uncomplicated; F17.210 Nicotine dependence, cigarettes, uncomplicated; E66.9 Obesity, unspecified; Z68.37 Body mass index [BMI] 37.0-37.9, adult; I25.2 Old myocardial infarction; Z98.61 Coronary angioplasty status; Z79.82 Long term (current) use of aspirin; Z79.02 Long term (current) use of antithrombotics/antiplatelets
CPT/HCPCS: A9270; C1729; J1644; J2250; J3010